=== PATIENT | male | born 1960 | race Caucasian/White ===

== ENCOUNTER 2018-05-07 18:28 | Observation (INO) ==
[2018-05-07] MEDS ORDERED: NORMAL SALINE 1,000 ML IV ONE ×2 (18:57→20:25)
[2018-05-07 19:10] LABS: Hematocrit 37.7 % (42.0-52.0); Hemoglobin 13.1 gm/dL (13.5-18.0); Mean Cell Volume 91.3 fl (78-100); Mean Corpuscular Hemoglobin 31.7 pg (27-31); Mean Corpuscular Hgb Conc 34.7 g/dl (32-36); Mean Platelet Volume 9.5 fl (8-11.3); Neutrophil # 5.1 K/mm3 (1.3-6.0); Neutrophil % 59.1 % (42-75.0); Platelet Count 219 K/mm3 (150-450); Red Blood Count 4.13 M/mm3 (4.7-6.0); Red Cell Distribution Width 12.1 % (11.5-14.0); White Blood Count 8.6 K/mm3 (4.0-10.5)
[2018-05-07 19:28] LABS: ALT 76 U/L (19-67); AST 53 U/L (0-48); Albumin * 3.2 gm/dl (3.4-5.0); Alkaline Phosphatase * 102 U/L (50-170); Anion Gap 13.6 mmol/L (6.8-13.8); BUN/Creatinine Ratio 15.5 (9.0-21.6); Bilirubin, Total 0.6 mg/dL (0.0-1.1); Blood Urea Nitrogen 24 mg/dL (6-23); Ca. Corrected For Albumin 9.1 mg/dL (8.4-10.2); Calcium * 8.8 mg/dL (7.9-10.9); Carbon Dioxide 28.3 mmol/L (24-32.6); Chloride 100 mmol/L (97-106); Glucose * 102 mg/dL (70-110); Potassium 2.9 mmol/L (3.4-4.6); Sodium 139 mmol/L (132-142); Total Protein 6.4 gm/dL (6.2-8.2)
[2018-05-07 19:30] LABS: Troponin I Less than 0.017 ng/mL (0.00-0.10)
--- NOTE | 2018-05-07 19:53 | ERNOTE ---
<Miguel A Subramanian - Last Filed: 05/07/18 20:08> Syncope ER HPI Date of Service: 05/07/18 Stated Complaint: LOC Time Seen by Provider: 05/07/18 18:55 Source: patient, family, EMS notes reviewed Exam Limitations: no limitations Immunizations: IMMUNIZATION HX Immunizations Up to Date Yes History of Influenza Vaccine Yes Allergies/Adverse Reactions: Allergies oxycodone HCl [From Percocet] Adverse Reaction (Intermediate, Verified 05/07/18 18:54) Other Told not to take med again Sulfa (Sulfonamide Antibiotics) [Sulfa(Sulfonamide Antibiotics)] Adverse Reaction (Mild, Verified 05/07/18 18:54) Home Medications: HOME MEDICATIONS metoprolol succinate ER 100 mg tablet,extended release 24 hr 100 mg PO DAILY #30 tab 01/07/18 [Last Taken Unknown] irbesartan 300 mg tablet 150 mg PO DAILY tab 03/14/18 [Last Taken Unknown] atorvastatin 40 mg tablet 40 mg PO DAILY #90 tab 04/08/18 [Last Taken Unknown] chlorthalidone 25 mg tablet 25 mg PO DAILY #30 tab 05/06/18 [Last Taken Unknown] - History of Present Illness Narrative: family reports patient was at home sleeping in chair and had syncopal episode after arising was unresponsive for some minutes until ems arrived Prior Episodes: Present: single episode today Symptoms prior to episode: Present: light headedness, other - patient reports visiion changes in left eye around time of episode Character of event: Present: prolonged (minutes), dazed, became unresponsive Location of Injury: Present: none Current Symptoms: Present: back to normal Prior Treament: Reports: recently seen, treated by physician Review of Systems - Review of Systems Constitutional: Present: See HPI, weakness, fatigue, malaise EYE: Present: blurred vision, other - vision changes in left eye ENT: Present: no symptoms reported Respiratory: Present: no symptoms reported Cardiology: Present: no symptoms reported Gastrointestinal/Abdominal: Present: diarrhea, other - prolonged diarrhea for some weeks Genitourinary: Present: no symptoms reported Musculoskeletal: Present: no symptoms reported Skin: Present: no symptoms reported Neurological: Present: See HPI, dizziness/light-headedness Endocrine: Present: no symptoms reported Hematologic/Lymphatic: Present: no symptoms reported Psych: Present: no symptoms reported All Other Systems: All systems neg except as marked Medical History (Last Reviewed 05/07/18 @ 18:53 by Jackie Diaz RN) Palpitations (Chronic) Onset Date: ~06/14/11 Hypertension (Chronic) Onset Date: ~06/14/11 Hyperlipidemia (Chronic) Onset Date: ~06/14/11 Headache (Chronic) Onset Date: ~06/14/11 Depression (Chronic) Onset Date: Unknown Back pain (Chronic) Onset Date: ~06/14/11 Anxiety (Chronic) Onset Date: ~06/14/11 Allergic rhinitis (Chronic) Surgical History: Surgical History (Last Reviewed 05/07/18 @ 18:53 by Jackie Diaz RN) H/O adenoidectomy Onset Date: Unknown H/O arthroscopic knee surgery Rt and Lt H/O wisdom tooth extraction History of ankle surgery Onset Date: Unknown History of appendectomy Onset Date: Unknown History of colonoscopy Onset Date: ~07/06/09 History of tonsillectomy Family History: Family History (Last Reviewed 05/07/18 @ 18:53 by Jackie Diaz RN) Mother Malignant lung neoplasm Father Kidney malignant neoplasm Social History: Preferred Language Uruguayan Smoking Status Former smoker Alcohol Use heavy Drug Use none (Last Updated 04/09/18 @ 14:10 by Tommy Ramos MD) No Social History Section defined Physical Exam - Physical Exam General Appearance: Present: mild distress, anxious Head Exam: Present: normal inspection, no evidence of injury Eye Exam: Normal inspection: bilateral, PERRL: bilateral, EOMI: bilateral Ears, Nose, Throat: Present: normal ENT inspection Neck: Present: normal inspection, nontender Respiratory: Present: no respiratory distress, normal breath sounds, no accessory muscle use, chest nontender, lungs clear Cardiovascular/Chest: Present: regular rate, rhythm, no murmur, normal peripheral pulses Peripheral Pulses: N=norm/S=strong/W=weak/B=bound/A=absent: Carotid (R): Normal, Carotid (L): Normal, Radial (R): Normal, Radial (L): Normal, Femoral (R): Normal, Femoral (L): Normal, Dorsalis-pedis (R): Normal, Dorsalis-pedis (L): Normal Gastrointestinal/Abdominal: Present: normal bowel sounds, nontender, nondistended, soft, no organomegaly Back Exam: Present: normal inspection, normal range of motion, no CVA tenderness, no vertebral tenderness Extremity Exam: Present: normal inspection, non-tender, normal range of motion, no edema Neurological Exam: Present: alert, oriented, normal mood/affect, no motor/sensory deficits DTR: N=norm/NB=norm/brisk/A=abs/DD=dull/dimin/HC=hyperactive: Bicep (R): Normal, Bicep (L): Normal, Tricep (R): Normal, Tricep (L): Normal, Knee (R): Normal, Knee (L): Normal, Ankle (R): Normal, Ankle (L): Normal Skin Exam: Present: normal color, warm/dry Lymphatic Exam: Present: no adenopathy Progress - Date and Time Seen: Date and Time: 05/07/18 20:05 case discussed with patient and to have ct of chestn case discussed with dr gill, case signed out to dr gill - Results and Orders Patient's Lab Results:: I have reviewed the patient's lab results. - Vital Signs Patient's Vital Signs:: I have reviewed the patient's vital signs. Vital Signs: Vital Signs 05/07/18 18:38 05/07/18 18:57 05/07/18 19:12 Temperature 36.8 C Pulse Rate 78 77 72 Respiratory Rate 15 16 18 Blood Pressure 97/60 98/59 77/44 L O2 Sat by Pulse Oximetry 95 95 95 05/07/18 19:23 Temperature Pulse Rate 73 Respiratory Rate 20 Blood Pressure 85/49 L O2 Sat by Pulse Oximetry 92 L - EKG EKG: NSR - Progress/Reassessment Chief Complaint: Syncopal Episode Progress:: Improved - Transfer of Care Physician Sign Out: Miguel A Subramanian Receiving Physician: Tyrone Gill Expected Disposition: Admit Plan - Plan Plan: to be admitted Departure Clinical Impression: Syncope and collapse - Departure Disposition: Still a patient Condition: Fair <Tyrone Gill - Last Filed: 05/08/18 00:46> Syncope ER HPI Immunizations: IMMUNIZATION HX Immunizations Up to Date Yes History of Influenza Vaccine Yes Medical History (Last Reviewed 05/07/18 @ 23:22 by Cory Blackmon RN) Palpitations (Chronic) Onset Date: ~06/14/11 Hypertension (Chronic) Onset Date: ~06/14/11 Hyperlipidemia (Chronic) Onset Date: ~06/14/11 Headache (Chronic) Onset Date: ~06/14/11 Depression (Chronic) Onset Date: Unknown Back pain (Chronic) Onset Date: ~06/14/11 Anxiety (Chronic) Onset Date: ~06/14/11 Allergic rhinitis (Chronic) Surgical History: Surgical History (Last Reviewed 05/07/18 @ 23:22 by Cory Blackmon RN) H/O adenoidectomy Onset Date: Unknown H/O arthroscopic knee surgery Rt and Lt H/O wisdom tooth extraction History of ankle surgery Onset Date: Unknown History of appendectomy Onset Date: Unknown History of colonoscopy Onset Date: ~07/06/09 History of tonsillectomy Family History: Family History (Last Reviewed 05/07/18 @ 23:23 by Cory Blackmon RN) Mother Malignant lung neoplasm Father Kidney malignant neoplasm Social History: Preferred Language U[place]ayan Smoking Status Former smoker Alcohol Use heavy Drug Use none (Last Updated 04/09/18 @ 14:10 by Tommy Ramos MD) No Social History Section defined Progress - Results and Orders Patient's Lab Results:: I have reviewed the patient's lab results. - Vital Signs Vital Signs: Vital Signs 05/07/18 18:38 05/07/18 18:57 05/07/18 19:12 Temperature 36.8 C Pulse Rate 78 77 72 Respiratory Rate 15 16 18 Blood Pressure 97/60 98/59 77/44 L O2 Sat by Pulse Oximetry 95 95 95 05/07/18 19:23 05/07/18 20:07 05/07/18 20:18 Temperature 37.7 C Pulse Rate 73 80 79 Respiratory Rate 20 16 18 Blood Pressure 85/49 L 97/49 95/63 O2 Sat by Pulse Oximetry 92 L 95 94 05/07/18 20:28 05/07/18 20:30 05/07/18 20:45 Temperature Pulse Rate 82 76 74 Respiratory Rate 18 19 Blood Pressure 103/64 98/56 O2 Sat by Pulse Oximetry 94 95 - EKG EKG: nonspecific ST T wave changes EKG read: Interp. by me - X-Ray X-Ray #1 X-Ray: chest Interpretation: Interp. by id X-ray Comments: No acute abnormalities. - CT/Ultrasound CT/Ultrasound Narrative: CT head without: Impression: No acute intracranial process. Electronically signed by Tiny Lee D.O. CTA chest IMPRESSION: 1. No acute pulmonary thromboembolic disease. 2. No consolidation. 3. Hepatic steatosis. Electronically signed by Tiny Lee D.O.. - Progress/Reassessment Progress:: Improved Progress Note-Subjective: 05/07/18 22:[address] Hernandes and he agrees with observation overnight with telemetry.
[2018-05-07 21:18] LABS: Urine Appearance Clear (CLEAR); Urine Bacteria TRACE; Urine Bilirubin Negative (NEGATIVE); Urine Blood Negative /ul (NEGATIVE); Urine Color Yellow; Urine Hyaline Cast 0-5 /LPF; Urine Ketone Negative (NEGATIVE); Urine Nitrite Negative (NEGATIVE); Urine Protein Negative (NEGATIVE); Urine RBC None Seen /hpf (0-5); Urine Urobilinogen Normal (NORMAL); Urine WBC TRACE /hpf (0-5)
[2018-05-07] MEDS ORDERED: NORMAL SALINE 1,000 ML IV PRN (22:27)
[2018-05-07] MEDS ORDERED: POTASSIUM CHLORIDE 20 MEQ TABLET.SA PO ONE (22:38)
--- NOTE | 2018-05-08 06:55 | HP ---
Chief Complaint - Chief Complaint Date of Service: 05/08/18 Time of Service: 06:47 Chief Complaint: Syncopal episode History of Present Illness: 57yo WM with PMH significant for HTN with labile BP's and periodic loss of vision in left eye thought to be possible TIA, was asleep in recliner, had consumed 2 cocktails prior to falling asleep and when he awoke he was alert, Ox3 and without issue. he climbed the stairs in their split level home and his heard him falling against the wall and so she went to him and helped him get to the bed. Once in bed he passed out and she was unable to arouse him so she called 911. His pulse was weak, he was diaphoretic, but did not vomit or have bowel incontinence. She did state that his umbilical hernia was sticking "way out". He had been taking meds as Rx'd and denies anything new other than takes Super Beet supplement most days. He was having some SOB at time of presentation to ER so D-dimer was done which was elevated. His Chest CT was negative for PE or infiltrates. EKG and cardiac enzymes were negative for AMI. But labs did show hypokalemia - 2.9 and ARF Cr 1.57, which was new to him. His SBP's were in the 70/80's on arrival. He was admitted to obs for IVF, IV potassium and resolution of his hypotension. Medical History (Last Reviewed 05/07/18 @ 23:22 by Cory Blackmon RN) Palpitations (Chronic) Onset Date: ~06/14/11 Hypertension (Chronic) Onset Date: ~06/14/11 Hyperlipidemia (Chronic) Onset Date: ~06/14/11 Headache (Chronic) Onset Date: ~06/14/11 Depression (Chronic) Onset Date: Unknown Back pain (Chronic) Onset Date: ~06/14/11 Anxiety (Chronic) Onset Date: ~06/14/11 Allergic rhinitis (Chronic) Surgical History: Surgical History (Last Reviewed 05/07/18 @ 23:22 by Cory Blackmon RN) H/O adenoidectomy Onset Date: Unknown H/O arthroscopic knee surgery Rt and Lt H/O wisdom tooth extraction History of ankle surgery Onset Date: Unknown History of appendectomy Onset Date: Unknown History of colonoscopy Onset Date: ~07/06/09 History of tonsillectomy Family History: Family History (Last Reviewed 05/07/18 @ 23:23 by Cory Blackmon RN) Mother Malignant lung neoplasm Father Kidney malignant neoplasm Social History: Patient Lives/Resources With Spouse 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 Smoking Status Former smoker Have you smoked in the past 12 No months Do you dip or chew tobacco No Alcohol Use heavy Drug Use none (Last Updated 04/09/18 @ 14:10 by Tommy Ramos MD) No Social History Section defined Review Of Systems (GEN) - Review of Systems Generalized/Overall Review: Present: Weakness. Absent: Chills, Fever, Malaise EENTM: Present: Other - vision change in left eye that resolved. Respiratory: Absent: Cough, Shortness of Breath Cardiac: Present: Syncope. Absent: Chest Pain, Edema, Palpitations Abdominal: Absent: Nausea, Vomiting, Diarrhea Genitourinary: Present: No Symptoms Reported Musculoskeletal: Present: No Symptoms Reported Neurological: Present: Weakness Skin: Present: No Symptoms Reported Endocrine: Present: No Symptoms Reported Immunizations: IMMUNIZATION HX Immunizations Up to Date Yes History of Influenza Vaccine Yes Allergies/Adverse Reactions: Allergies Allergy/AdvReac Type Severity Reaction Status Date / Time oxycodone HCl [From Percocet] AdvReac Intermediate Other Verified 05/07/18 18:54 Sulfa (Sulfonamide AdvReac Mild Verified 05/07/18 18:54 Antibiotics) [Sulfa(Sulfonamide Antibiotics)] Home Medications: HOME MEDICATIONS metoprolol succinate ER 100 mg tablet,extended release 24 hr 100 mg PO DAILY #30 tab 01/07/18 [Last Taken Unknown] irbesartan 300 mg tablet 150 mg PO DAILY tab 03/14/18 [Last Taken Unknown] atorvastatin 40 mg tablet 40 mg PO DAILY #90 tab 04/08/18 [Last Taken Unknown] Exam - Exam Vital Signs: Vital Signs - Last Taken Temp 36.8 C 05/08/18 02:35 Pulse 71 05/08/18 04:35 Resp 16 05/08/18 02:35 BP 135/85 05/08/18 02:35 Pulse Ox 94 05/08/18 02:35 Constitutional: Present: Alert, Oriented x3, Cooperative, No distress ENT Exam: Present: normal ENT inspection, hearing grossly normal Eye Exam: bilateral eye: normal inspection, PERRL, EOMI Neck: Present: supple Back Exam: Present: normal inspection Respiratory: Present: lungs clear, normal breath sounds, no respiratory distress, no accessory muscle use Cardiovascular/Chest: Present: regular rate, rhythm, no murmur Peripheral Pulses: carotid (R): 2+, carotid (L): 2+, radial (R): 2+, radial (L): 2+ Abdomen: Present: Normal bowel sounds, soft, nontender, nondistended, no rebound tenderness, no hepatospenomegaly, hernia - umbilical hernia with no retained bowel in it. Extremity: Present: normal range of motion, non-tender, normal inspection, no pedal edema, no calf tenderness Skin Exam: Present: normal color, warm/dry Neurologic: Present: professor of theater II-XII nml as tested, normal cerebellar test, alert, normal mood/affect, oriented x 3 Appearance: Present: appropriate appearance, appropriate insight, neat Eye contact: Present: cooperative, good eye contact, normal speech Thoughts: Present: normal thought pattern, no apparent hallucination Diagnostic Studies: Abnormal Lab Results 05/07/18 05/07/18 05/07/18 Range/Units 19:06 19:06 19:06 RBC 4.13 L (4.7-6.0) M/mm3 Hgb 13.1 L (13.5-18.0) gm/dL Hct 37.7 L (42.0-52.0) % MCH 31.7 H (27-31) pg Immature Gran % (Auto) 0.70 H (0.001-0.429) % Immature Gran # (Auto) 0.06 H (0.000-0.0310) K/mm3 Monocytes % 12.4 H (0.0-9) % Eosinophils % 6.3 H (0.0-3.0) % Basophils % 1.3 H (0.0-1.0) % Monocytes # 1.1 H (0.0-1.0) k/mm3 D-Dimer 0.52 H (0.19-0.49) ug/mL Potassium 2.9 L (3.4-4.6) mmol/L BUN 24 H (6-23) mg/dL Creatinine 1.55 H (0.4-1.4) mg/dL Est GFR (Non-Af Amer) 49 L D (60-130) mL/min AST 53 H (0-48) U/L ALT 76 H (19-67) U/L Albumin 3.2 L (3.4-5.0) gm/dl Hyaline Casts (NONE) /LPF 05/07/18 Range/Units 21:14 RBC (4.7-6.0) M/mm3 Hgb (13.5-18.0) gm/dL Hct (42.0-52.0) % MCH (27-31) pg Immature Gran % (Auto) (0.001-0.429) % Immature Gran # (Auto) (0.000-0.0310) K/mm3 Monocytes % (0.0-9) % Eosinophils % (0.0-3.0) % Basophils % (0.0-1.0) % Monocytes # (0.0-1.0) k/mm3 D-Dimer (0.19-0.49) ug/mL Potassium (3.4-4.6) mmol/L BUN (6-23) mg/dL Creatinine (0.4-1.4) mg/dL Est GFR (Non-Af Amer) (60-130) mL/min AST (0-48) U/L ALT (19-67) U/L Albumin (3.4-5.0) gm/dl Hyaline Casts 0-5 H (NONE) /LPF Laboratory Results WBC 8.6 K/mm3 (4.0-10.5) 05/07/18 19:06 RBC 4.13 M/mm3 (4.7-6.0) L 05/07/18 19:06 Hgb 13.1 gm/dL (13.5-18.0) L 18 19:06 Hct 37.7 % (42.0-52.0) L 18 19:06 MCV 91.3 fl (78-100) 18 19:06 MCH 31.7 pg (27-31) H 18 19:06 MCHC 34.7 g/dl (32-36) 18 19:06 RDW 12.1 % (11.5-14.0) 18 19:06 Plt Count 219 K/mm3 (150-450) 05/07/18 19:06 MPV 9.5 fl (8-11.3) 05/07/18 19:06 Immature Gran % (Auto) 0.70 % (0.001-0.429) H 05/07/18 19:06 Immature Gran # (Auto) 0.06 K/mm3 (0.000-0.0310) H 05/07/18 19:06 Neutrophils % 59.1 % (42-75.0) 05/07/18 19:06 Lymphocytes % 20.2 % (20-51) 05/07/18 19:06 Monocytes % 12.4 % (0.0-9) H 05/07/18 19:06 Eosinophils % 6.3 % (0.0-3.0) H 05/07/18 19:06 Basophils % 1.3 % (0.0-1.0) H 05/07/18 19:06 Nucleated RBC % 0.0 k/mm3 (0-1) 05/07/18 19:06 Neutrophils # 5.1 K/mm3 (1.3-6.0) 05/07/18 19:06 Lymphocytes # 1.74 k/mm3 (1.5-3.5) 05/07/18 19:06 Monocytes # 1.1 k/mm3 (0.0-1.0) H 05/07/18 19:06 Eosinophils # 0.5 k/mm3 (0.0-0.7) 05/07/18 19:06 Absolute Basophils 0.1 k/mm3 (0.0-0.1) 05/07/18 19:06 D-Dimer 0.52 ug/mL (0.19-0.49) H 05/07/18 19:06 Sodium 139 mmol/L (132-142) 05/07/18 19:06 Plasma Sodium 139 mmol/L (130-142) 05/07/18 19:06 Potassium 2.9 mmol/L (3.4-4.6) L 05/07/18 19:06 Chloride 100 mmol/L (97-106) 05/07/18 19:06 Carbon Dioxide 28.3 mmol/L (24-32.6) 05/07/18 19:06 Anion Gap 13.6 mmol/L (6.8-13.8) 05/07/18 19:06 BUN 24 mg/dL (6-23) H 05/07/18 19:06 Creatinine 1.55 mg/dL (0.4-1.4) H 05/07/18 19:06 Est GFR (Non-Af Amer) 49 mL/min (60-130) L D 05/07/18 19:06 BUN/Creatinine Ratio 15.5 (9.0-21.6) 05/07/18 19:06 Random Glucose 102 mg/dL (70-110) 05/07/18 19:06 Calcium 8.8 mg/dL (7.9-10.9) 05/07/18 19:06 Calcium Adj for Albumin 9.1 mg/dL (8.4-10.2) 05/07/18 19:06 Total Bilirubin 0.6 mg/dL (0.0-1.1) 05/07/18 19:06 AST 53 U/L (0-48) H 05/07/18 19:06 ALT 76 U/L (19-67) H 05/07/18 19:06 Alkaline Phosphatase 102 U/L (50-170) 05/07/18 19:06 Troponin I Less than 0.017 ng/mL (0.00-0.10) 05/07/18 19:06 Total Protein 6.4 gm/dL (6.2-8.2) 05/07/18 19:06 Albumin 3.2 gm/dl (3.4-5.0) L 05/07/18 19:06 Urine Color Yellow 05/07/18 21:14 Urine Appearance Clear (CLEAR) 05/07/18 21:14 Urine pH 6.0 pH (5.0-7.0) 05/07/18 21:14 Ur Specific [place] 1.010 SP.GR. (1.005-1.030) 05/07/18 21:14 Urine Protein Negative mg/dL (NEGATIVE) 05/07/18 21:14 Urine Glucose (UA) Negative mg/dL (NEGATIVE) 05/07/18 21:14 Urine Ketones Negative mg/dL (NEGATIVE) 05/07/18 21:14 Urine Blood Negative /ul (NEGATIVE) 05/07/18 21:14 Urine Nitrate Negative (NEGATIVE) 05/07/18 21:14 Urine Bilirubin Negative mg/dl (NEGATIVE) 05/07/18 21:14 Urine Urobilinogen Normal EU/dl (NORMAL) 05/07/18 21:14 Ur Leukocyte Esterase Negative /ul (NEGATIVE) 05/07/18 21:14 Urine RBC None seen /hpf (0-5) 05/07/18 21:14 Urine WBC Trace /hpf (0-5) 05/07/18 21:14 Ur Epithelial Cells None seen /hpf (0-5) 05/07/18 21:14 Urine Bacteria Trace (NONE) 05/07/18 21:14 Hyaline Casts 0-5 /LPF (NONE) H 05/07/18 21:14 Urine Culture Comments No culture indicated 05/07/18 21:14 Assessment/Plan - Assessment/Plan (1) Hypokalemia Assessment: contributing to his syncopal episode and is most likely secondary to his chlorthalidone and possibly his "super beet" supplement. was given 20meq IV last pm, will recheck Cr, K this am. Problem: Acute (2) Acute renal failure Assessment: probably due to chlorthalidone and possibly his "super beet" supplement. will plan on stopping this medication and supplement for now. Problem: Acute (3) Syncope and collapse Assessment: combination of BP meds, cocktails, getting up from a nap in a chair and climbing stairs in his house, coupled with his hypokalemia. could be other issues, but labs and EKG show no AMI or other defining issues. We still may want to get a stress test outpatient, but his hypotension at time of admission fits reasons for syncope. It was mentioned by his that his umbilical hernia was greatly distended and this could have some contribution to what happened, though he denies any abdominal pain and there is no bowel trapped in the hernia this am. Problem: Acute (4) Umbilical hernia Assessment: will do referral outpt. to for evaluation for possible repair due to distension of hernia during this current event. Problem: Chronic Qualifiers: Obstruction and gangrene presence: without obstruction or gangrene Qualified Code(s): K42.9 - Umbilical hernia without obstruction or gangrene (5) Hypertension Assessment: BP's running low. will modify meds, stopping chlorthalidone for now. Problem: Chronic Qualifiers: Hypertension type: essential hypertension Qualified Code(s): I10 - Essential (primary) hypertension (6) Hyperlipidemia Assessment: no changes at this time. Problem: Chronic Qualifiers: Hyperlipidemia type: pure hypercholesterolemia Qualified Code(s): E78.00 - Pure hypercholesterolemia, unspecified; E78.0 - Pure hypercholesterolemia (7) Discharge planning issues Assessment: can discharge later today if potassium is > 3.0 and his BP's are ok and he walks the halls without any further issues. Problem: Acute
[2018-05-08 07:35] LABS: Albumin * 3.2 gm/dl (3.4-5.0); Anion Gap 12.3 mmol/L (6.8-13.8); BUN/Creatinine Ratio 16.2 (9.0-21.6); Bilirubin, Total 0.8 mg/dL (0.0-1.1); Calcium * 8.7 mg/dL (7.9-10.9); Carbon Dioxide 26.4 mmol/L (24-32.6); Potassium 3.7 mmol/L (3.4-4.6); Total Protein 6.5 gm/dL (6.2-8.2)
--- NOTE | 2018-05-08 08:29 | DS ---
(1) Hypokalemia Problem: Acute (2) Acute renal failure Problem: Acute (3) Syncope and collapse Problem: Acute (4) Umbilical hernia Problem: Chronic Qualifiers: Obstruction and gangrene presence: without obstruction or gangrene (5) Hypertension Problem: Chronic Qualifiers: Hypertension type: essential hypertension Qualified Code(s): I10 - Essential (primary) hypertension (6) Hyperlipidemia Problem: Chronic Qualifiers: Hyperlipidemia type: pure hypercholesterolemia Qualified Code(s): E78.00 - Pure hypercholesterolemia, unspecified; E78.0 - Pure hypercholesterolemia (7) Discharge planning issues Problem: Acute Description of Stay: Pt. admitted with hypokalemia, ARF and with syncope and collapse. Workup for PE and AMI was negative. He was hypotense with SBP in the 70's and 80's at time of arrival, but BP's, potassium and Cr all normalized with IVF and IV K. Pt. had no further sx and was feeling more his usual self at time of discharge. Due to hypokalemia, ARF and hypotension we will hold his chlorthalidone until f/u. Still might want to do MRI of head outpt due to vision changes in his left eye that appears to recur and especially in light of this new syncopal episode and fluctuations in his BP's which all could be symptomatic of an aneurysm. His umbilical hernia may have contributed some to his sx, but nothing acute going on at time of discharge. Will do outpt. referral to . Procedures Performed: none Results and Findings: Lab Pending Results 05/07/18 19:06: WBC 8.6, RBC 4.13 L, Hgb 13.1 L, Hct 37.7 L, MCV 91.3, MCH 31.7 H, MCHC 34.7, RDW 12.1, Plt Count 219, MPV 9.5, Immature Gran % (Auto) 0.70 H, Immature Gran # (Auto) 0.06 H, Neutrophils % 59.1, Lymphocytes % 20.2, Monocytes % 12.4 H, Eosinophils % 6.3 H, Basophils % 1.3 H, Nucleated RBC % 0.0, Neutrophils # 5.1, Lymphocytes # 1.74, Monocytes # 1.1 H, Eosinophils # 0.5, Absolute Basophils 0.1 05/07/18 19:06: Sodium 139, Plasma Sodium 139, Potassium 2.9 L, Chloride 100, Carbon Dioxide 28.3, Anion Gap 13.6, BUN 24 H, Creatinine 1.55 H, Est GFR (Non- Af Amer) 49 L D, BUN/Creatinine Ratio 15.5, Random Glucose 102, Calcium 8.8, Calcium Adj for Albumin 9.1, Total Bilirubin 0.6, AST 53 H, ALT 76 H, Alkaline Phosphatase 102, Troponin I Less than 0.017, Total Protein 6.4, Albumin 3.2 L 05/07/18 19:06: D-Dimer 0.52 H 05/07/18 21:14: Urine Color Yellow, Urine Appearance Clear, Urine pH 6.0, Ur Specific [place] 1.010, Urine Protein Negative, Urine Glucose (UA) Negative, Urine Ketones Negative, Urine Blood Negative, Urine Nitrate Negative, Urine Bilirubin Negative, Urine Urobilinogen Normal, Ur Leukocyte Esterase Negative, Urine RBC None seen, Urine WBC Trace, Ur Epithelial Cells None seen, Urine Bacteria Trace, Hyaline Casts 0-5 H, Urine Culture Comments No culture indicated 05/08/18 07:15: Sodium 141, Plasma Sodium 141, Potassium 3.7 D, Chloride 106, Carbon Dioxide 26.4, Anion Gap 12.3, BUN 19, Creatinine 1.17, Est GFR (Non-Af Amer) 68 D, BUN/Creatinine Ratio 16.2, Random Glucose 106, Calcium 8.7, Calcium Adj for Albumin 9.0, Total Bilirubin 0.8, AST 59 H, ALT 80 H, Alkaline Phosphatase 101, Total Protein 6.5, Albumin 3.2 L Discharge Location: Home Disposition: Home self-care Condition: Good Discharge Diet: General/regular food Referrals: Tommy Ramos MD [Primary Care Provider] - One Week Complete Home Medications List: Complete Home Medication List: metoprolol succinate ER 100 mg tablet,extended release 24 hr 100 mg PO DAILY #30 tab 01/07/18 irbesartan 300 mg tablet 150 mg PO DAILY tab 03/14/18 atorvastatin 40 mg tablet 40 mg PO DAILY #90 tab 04/08/18
[2018-05-08] MEDS ORDERED: LOSARTAN POTASSIUM 50 MG TABLET PO SCH (09:00)
[2018-05-08] MEDS ORDERED: METOPROLOL SUCCINATE 100 MG TABLET.SA PO SCH (09:00)
[2018-05-08 09:48] VITALS: BP 134/89
[2018-05-08] MEDS ORDERED: ROSUVASTATIN CALCIUM 20 MG TABLET PO SCH (21:00)
== END 2018-05-08 09:45 | disposition home or self-care (01) ==
LOC: ER 18:28 → MS 18:28
PROVIDERS: ADMIT Family Medicine; ATTEND Family Medicine
CPT/HCPCS: 36415; 70450; 71020; 71046; 71275; 80053; 81001; 84484; 85025; 85379; 93005; 96365; 96366; 99285; G0378